=== PATIENT | male | born 1985 | race Caucasian/White ===

== ENCOUNTER 2024-07-01 10:45 | Emergency (ER) | payer MEDICARE, OTHER ==
[2024-07-01 11:51] VITALS: TEMP 97.7
--- NOTE | 2024-07-01 12:13 | ED ---
Recheck HPI - General Chief Complaint: Needlestick/Exposure Stated Complaint: poss hep B contraction Time Seen by Provider: 07/01/24 12:11 Source: patient, RN notes reviewed Mode of arrival: ambulatory Limitations: no limitations - History of Present Illness Initial Comments: 39-year-old male presented the ER for evaluation of hepatitis B exposure. Pat ient states he had sexual intercourse with a female yesterday who stated she was positive for hepatitis B. Patient states he googled possible preventions and stated he was told to come to the ER for an injection. Patient also reports he would like to be prophylactically treated for all STDs. He denies any penile pain, rashes or discharge. No scrotal swelling or tenderness. No abdominal pain, nausea, vomiting, constipation/diarrhea or fevers. Patient does admit to a history of hepatitis C. No other complaints. Patient unsure of childhood vaccination status. - Related Data Previous Rx's Medication Instructions Recorded Doxycycline [Vibramycin] 100 mg PO BID #14 capsule 07/01/24 metroNIDAZOLE [Flagyl] 2 g PO ONCE 1 Days #4 tab 07/01/24 Allergies Allergy/AdvReac Type Severity Reaction Status Date / Time haloperidol [From Haldol] Allergy Unknown Verified 07/01/24 11:46 meperidine [From Demerol] Allergy Unknown Verified 07/01/24 11:46 quetiapine [From Seroquel] Allergy Unknown Verified 07/01/24 11:46 Review of Systems ROS Statement: Those systems with pertinent positive or pertinent negative responses have been documented in the HPI. ROS Other: All systems not noted in ROS Statement are negative. Past Medical History Additional Past Medical History / Comment(s): Hep C with treatment Past Surgical History: No Surgical Hx Reported Past Psychological History: Bipolar Smoking Status: Current every day smoker Past Alcohol Use History: None Reported Past Drug Use History: None Reported General Exam Limitations: no limitations General appearance: alert, in no apparent distress Respiratory exam: Present: normal lung sounds bilaterally. Absent: respiratory distress, wheezes, rales, rhonchi, stridor Cardiovascular Exam: Present: regular rate, normal rhythm, normal heart sounds. Absent: systolic murmur, diastolic murmur, rubs, gallop, clicks GI/Abdominal exam: Present: soft, normal bowel sounds. Absent: distended, tenderness, guarding, rebound, rigid Neurological exam: Present: alert, oriented X3, CN II-XII intact Skin exam: Present: warm, dry, intact, normal color. Absent: rash Course Vital Signs 07/01/24 07/01/24 11:46 13:15 Temperature 97.7 F Pulse Rate 60 62 Respiratory 18 16 Rate Blood Pressure 115/65 126/86 O2 Sat by Pulse 98 99 Oximetry - Reevaluation(s) Reevaluation #1: 07/01/24 12:49 Patient refused syphilis testing and prophylactic treatment. Patient also refused herpes prophylaxis Medical Decision Making - Medical Decision Making Was pt. sent in by a medical professional or institution (, PA, SUPERVISORY LIFEGUARD, urgent care, hospital, or correction...) When possible be specific @ -No Did you speak to anyone other than the patient for history (EMS, parent, family, police, friend...)? What history was obtained from this source @ -No Did you review nursing and triage notes (agree or disagree)? Why? @ -I reviewed and agree with nursing and triage notes Were old charts reviewed (outside hosp., previous admission, EMS record, old EKG, old radiological studies, urgent care reports/EKG's, correction records)? Report findings @ -No old charts were reviewed Differential Diagnosis (chest pain, altered mental status, abdominal pain women, abdominal pain men, vaginal bleeding, weakness, fever, dyspnea, syncope, headache, dizziness, GI bleed, back pain, seizure, CVA, palpatations, mental health, musculoskeletal)? @ -Gonorrhea, chlamydia, hepatitis, trichomonas, syphilis, herpes... This list is not meant to be all-inclusive] EKG interpreted by me (3pts min.). @ -None done X-rays interpreted by me (1pt min.). @ -None done CT interpreted by me (1pt min.). @ -None done U/S interpreted by me (1pt. min.). @ -None done What testing was considered but not performed or refused? (CT, X-rays, U/S, labs)? Why? @ -Patient refused syphilis testing. What meds were considered but not given or refused? Why? @ -Patient refused syphilis and herpes prophylaxis. Hepatitis B vaccinations ordered but I was notified by pharmacy that we do not carry these and patient will have to follow-up at health department for vaccination. Did you discuss the management of the patient with other professionals (professionals i.e. , PA, SUPERVISORY LIFEGUARD, lab, RT, psych nurse, family welfare social work professor, caster helper, teacher, patient transport officer, machine adjuster leader case trim)? Give summary @ -No Was smoking cessation discussed for >3mins.? @ -I discussed smoking cessation for greater than 3 minutes. The risk of smoking were discussed with the patient including but not limited to risks of cancer, stroke, coronary artery disease and COPD. Also discussed with patient were multiple methods of quitting smoking. Lastly we discussed the financial cost of smoking. Was critical care preformed (if so, how long)? @ -No Were there social determinants of health that impacted care today? How? (Homelessness, low income, unemployed, alcoholism, drug addiction, transportation, low edu. Level, literacy, decrease access to med. care, senior living, rehab)? @ -Patient does not currently have a PCP. Was there de-escalation of care discussed even if they declined (Discuss DNR or withdrawal of care, Hospice)? DNR status @ -No What co-morbidities impacted this encounter? (DM, HTN, Smoking, COPD, CAD, Cancer, CVA, ARF, Chemo, Hep., AIDS, mental health diagnosis, sleep apnea, morbid obesity)? @ -History of hepatitis C Was patient admitted / discharged? Hospital course, mention meds given and route, prescriptions, significant lab abnormalities, going to OR and other pertinent info. @ -Discharge. 39-year-old male presented to ER for evaluation of STD exposure. Exam benign. Urinalysis unremarkable. Urine gonorrhea, chlamydia and trichomonas pending. Patient elected to be prophylactically treated and received IM Rocephin. Patient prescribed doxycycline and Flagyl. Patient refused syphilis and herpes prophylaxis. Hepatitis B vaccination ordered but I was notified by pharmacy that we do not carry this and patient will have to follow-up with health department for vaccination. I discussed this with patient who is agreeable. Contact information for health department was given upon discharge. Patient is stable for discharge and outpatient follow-up with PCP. As patient does not have a current PCP I recommended he follow-up with residency clinic within the next 24 to 48 hours for recheck. Patient is agreeable. Strict return parameters discussed. Patient discharged in stable condition with follow-up to PCP. Patient verbally expressed understanding and agreement with care plan. Case discussed with ED attending, Dr. Parsons. Undiagnosed new problem with uncertain prognosis? @ -No Drug Therapy requiring intensive monitoring for toxicity (Heparin, Nitro, Insulin, Cardizem)? @ -No Were any procedures done? @ -No Diagnosis/symptom? @ -STD exposure Acute, or Chronic, or Acute on Chronic? @ -Acute Uncomplicated (without systemic symptoms) or Complicated (systemic symptoms)? @ -Uncomplicated Side effects of treatment? @ -No Exacerbation, Progression, or Severe Exacerbation? @ -No Poses a threat to life or bodily function? How? (Chest pain, [place], [place], pneumonia, PE, COPD, DKA, ARF, appy, cholecystitis, CVA, Diverticulitis, Homicidal, Suicidal, threat to staff... and all critical care pts) @ -Yes, STDs can lead to infertility. - Lab Data Lab Results 07/01/24 Range/Units 12:17 Urine Color Yellow Urine Appearance Clear (Clear) Urine pH 6.5 (5.0-8.0) Ur Specific [place] 1.029 (1.001-1.035) Urine Protein Trace H (Negative) Urine Glucose (UA) Negative (Negative) Urine Ketones Negative (Negative) Urine Blood Negative (Negative) Urine Nitrite Negative (Negative) Urine Bilirubin Negative (Negative) Urine Urobilinogen <2.0 (<2.0) mg/dL Ur Leukocyte Esterase Negative (Negative) Disposition Clinical Impression: Exposure to STD Disposition: HOME SELF-CARE Condition: Stable Instructions (If sedation given, give patient instructions): Hepatitis B Vacci ne (By injection), Sexually Transmitted Diseases (ED), Hepatitis B (ED) Additional Instructions: Follow-up closely next 24 to 48 hours with residency clinic for reevaluation. Take antibiotics as prescribed. All positive results will be called back to you. Return to the ER for any new or worsening concerns. Go to health department for hepatitis B vaccine. [facility] - [address] [place] [id number] Prescriptions: metroNIDAZOLE [Flagyl] 2 g PO ONCE 1 Days #4 tab Doxycycline [Vibramycin] 100 mg PO BID #14 capsule Is patient prescribed a controlled substance at d/c from ED?: No Referrals: None,Stated [Primary Care Provider] - 1-2 days Forms: Area PCPs Time of Disposition: 12:46
[2024-07-01 12:27] LABS: Appearance,Urine Clear (Clear); Bilirubin,Urine Negative (Negative); Blood,Urine Negative (Negative); Color,Urine Yellow; Glucose,Urine (UA) Negative (Negative); Ketones,Urine Negative (Negative); Leukocyte Esterase,Urine Negative (Negative); Nitrite,Urine Negative (Negative); PH, Urine 6.5 (5.0-8.0); Protein,Urine Trace (Negative); Specific Gravity,Urine 1.029 (1.001-1.035); Urobilinogen,Urine <2.0 mg/dL (<2.0)
[2024-07-01] MEDS ORDERED: HEPATITIS B VIRUS VAC-ADULT/PF 20 MCG/ML SYRINGE IM ONE (12:40)
[2024-07-01] MEDS: DOXYCYCLINE 100 MG CAP PO STA (13:01)
[2024-07-01] MEDS: cefTRIAXone 250 MG VIAL IM STA (13:02)
[2024-07-01 13:17] VITALS: BP 126/86; PULSE 62; RESP 16
[2024-07-03 12:46] LABS: C. trachomatis,PCR Negative (Negative); N. gonorrhoeae,PCR Negative (Negative)
== END 2024-07-01 13:16 | disposition home or self-care (01) ==
LOC: EC 10:45
DX: Z20.2 Contact with and (suspected) exposure to infections with a predominantly sexual mode of transmission (principal); Z86.19 Personal history of other infectious and parasitic diseases; F17.200 Nicotine dependence, unspecified, uncomplicated; Z88.8 Allergy status to other drugs, medicaments and biological substances; Z88.5 Allergy status to narcotic agent
CPT/HCPCS: 81003; 87491; 87591; 87661; 99283; 96372; 99406; J0696

== ENCOUNTER 2024-10-26 01:18 | Inpatient (IN) | payer MEDICARE, OTHER ==
[2024-10-26] MEDS: SODIUM CHLORIDE 0.9% 500 ML 500 ML IV STA (02:30)
[2024-10-26 02:34] LABS: Basophils # (A) 0.05 10*3/uL (0.00-0.10); Basophils % (A) 0.4 %; Eosinophils % (A) 1.5 %; HGB 15.4 g/dL (13.0-17.0); Lymphocytes % (A) 22.6 %; MCH 31.4 pg (27.0-32.0); MCHC 36.7 g/dL (32.0-37.0); MCV 85.5 fL (80.0-97.0); Mean Platelet Volume 9.2 fL (9.5-12.2); Monocytes # (A) 1.02 10*3/uL (0.20-1.00); Monocytes % (A) 7.7 %; Neutrophils # (A) 8.98 10*3/uL (1.80-7.70); Neutrophils % (A) 67.5 %; Platelet Count 239 10*3/uL (140-440); RBC 4.91 10*6/uL (4.40-5.60); RDW 12.1 % (11.5-14.5); WBC 13.29 10*3/uL (4.50-10.00)
[2024-10-26 02:46] LABS: ALT 16 U/L (4-49); African American GFR (CKD) >90 (>60 ml/min/1.73 sqM); Albumin 4.2 g/dL (3.5-5.0); Anion Gap 11 mmol/L; Blood Urea Nitrogen 16 mg/dL (9-20); Calcium 9.1 mg/dL (8.4-10.2); Carbon Dioxide 22 mmol/L (22-30); Chloride 104 mmol/L (98-107); Glucose 105 mg/dL (74-99); Non-African American GFR(CKD) >90 (>60 ml/min/1.73 sqM); Sodium 137 mmol/L (137-145); Total Bilirubin 0.7 mg/dL (0.2-1.3); Total Protein 7.4 g/dL (6.3-8.2)
[2024-10-26 02:51] LABS: AST 24 U/L (17-59); Alkaline Phosphatase 61 U/L (38-126); Potassium 3.9 mmol/L (3.5-5.1)
--- NOTE | 2024-10-26 03:43 | XR ---
EXAM: XR Chest, 2 Views CLINICAL HISTORY: ITS.REASON XR Reason: right chest pain TECHNIQUE: Frontal and lateral views of the chest. COMPARISON: None FINDINGS: Hardware: None. Lungs/pleura: Opacity in the posterior right lower lobe. Small right pleural effusion. Heart/mediastinum: Normal. No cardiomegaly. Soft tissues: Unremarkable. Bones: No acute fracture. Upper abdomen: Normal. IMPRESSION: Opacity in the posterior right lower lobe may represent atelectasis versus infectious/inflammatory process. Small right pleural effusion.
--- NOTE | 2024-10-26 03:52 | CT ---
EXAM: CT Angiography Chest With Intravenous Contrast CLINICAL HISTORY: ITS.REASON CT Reason: Right pleuritic pain TECHNIQUE: Axial computed tomographic angiography images of the chest with intravenous contrast. CTDI is 12.8 mGy and DLP is 480.4 mGy-cm. This CT exam was performed using one or more of the following dose reduction techniques: automated exposure control, adjustment of the mA and/or kV according to patient size, and/or use of iterative reconstruction technique. MIP reconstructed images were created and reviewed. COMPARISON: None FINDINGS: Pulmonary arteries: Pulmonary emboli in the segmental and subsegmental pulmonary arteries to the right upper lobe. Pulmonary emboli in the subsegmental pulmonary arteries to the right middle lobe and right lower lobe. Subsegmental pulmonary emboli in the pulmonary arteries to the left lower lobe and lingula. Aorta: No acute findings. No aortic aneurysm or dissection. Lungs: Consolidations and groundglass opacities in the posterior right lower lobe may represent pulmonary infarct versus pneumonia. Small focal density at the posterior left lung base may represent atelectasis versus developing infarct or infectious/inflammatory process. Pleural space: Small right pleural effusion. No pneumothorax. Heart: RV/LV ratio is greater than 1. No cardiomegaly. No significant pericardial effusion. Bones/joints: No acute fracture. No dislocation. Soft tissues: Unremarkable. Lymph nodes: Unremarkable. No enlarged lymph nodes. Gallbladder and bile ducts: Contracted gallbladder. IMPRESSION: 1. Pulmonary emboli in the segmental and subsegmental pulmonary arteries to the right upper lobe. Pulmonary emboli in the subsegmental pulmonary arteries to the right middle lobe and right lower lobe. Subsegmental pulmonary emboli in the pulmonary arteries to the left lower lobe and lingula. 2. No aortic aneurysm or dissection. 3. Consolidations and groundglass opacities in the posterior right lower lobe may represent pulmonary infarct versus pneumonia. Small focal density at the posterior left lung base may represent atelectasis versus developing infarct or infectious/inflammatory process. 4. Small right pleural effusion. 5. RV/LV ratio is greater than 1. <MYCVCSECTION> Communications: 10/26/24 03:53 Call Doctor Regarding Pulmonary Embolism, called Dr. Hunter on 10/26 03:52 (-04:00)
[2024-10-26] MEDS ORDERED: HEPARIN SODIUM 1,000 UN/ML (10ML VL) IV PRN (03:56)
[2024-10-26] MEDS ORDERED: MAG HYDROX/AL HYDROX/SIMETH 30 ML CUP PO PRN (04:05)
[2024-10-26] MEDS ORDERED: NALOXONE 0.4 MG/ML 1 ML VIAL IV PRN ×2 (04:05→06:57)
[2024-10-26] MEDS: KETOROLAC 15 MG/ML 1 ML VIAL IVP SCH (04:17)
[2024-10-26] MEDS: HEPARIN SODIUM 1,000 UN/ML (10ML VL) IV ONE (04:17)
[2024-10-26] MEDS: HEPARIN SOD,PORK IN 0.45% NACL 25,000 UNIT in 0.45% NACL 1 250ML.BAG IV SCH (04:19)
[2024-10-26] MEDS: SODIUM CHLORIDE 0.9% 1,000 ML IV SCH (04:21)
--- NOTE | 2024-10-26 04:45 | ED ---
Chest Pain HPI - General Chief Complaint: Headache Stated Complaint: Right side pain Time Seen by Provider: 10/26/24 01:44 Source: patient Mode of arrival: ambulatory Limitations: no limitations - History of Present Illness Initial Comments: This patient is a 39-year-old man who presents with a number of complaints that started yesterday. The patient is having some mild diffuse generalized headache. He describes it as mild to moderate intensity. He states that he has had worse headaches in the past. He denies neck pain. No neurologic symptoms. The patient also complaining of right sided chest pain that is worse when he takes a deep breath or with some movements. He has not noted fever or chills. No productive cough. No real dyspnea. No hemoptysis. The patient denies leg pain or swelling. MD Complaint: chest pain Onset/Timin -: days(s) Onset: during rest Pain Location: right chest Pain Radiation: none Severity: moderate Quality: sharp Consistency: intermittent Improves With: nothing Worsens With: nothing Treatments Prior to Arrival: none - Related Data Home Medications Medication Instructions Recorded Confirmed OLANZapine 20 mg PO HS 10/26/24 10/26/24 buPROPion HCL [buPROPion HCL XL] 150 mg PO DAILY 10/26/24 10/26/24 cloNIDine HCL [Catapres] 0.1 mg PO BID 10/26/24 10/26/24 Previous Rx's Medication Instructions Recorded Apixaban [Eliquis Starter Pack 5 - 10 mg PO DIRECTED 30 Days 10/27/24 (for VTE)] #1 each Allergies Allergy/AdvReac Type Severity Reaction Status Date / Time haloperidol [From Haldol] Allergy "feels Verified 10/26/24 10:32 like swallowing tongue" meperidine [From Demerol] Allergy Rash/Hives Verified 10/26/24 10:32 quetiapine [From Seroquel] AdvReac Restless Verified 10/26/24 10:32 Legs Review of Systems ROS Statement: Those systems with pertinent positive or pertinent negative responses have been documented in the HPI. ROS Other: All systems not noted in ROS Statement are negative. Constitutional: Denies: fever, chills Respiratory: Denies: cough, dyspnea, wheezes, hemoptysis Cardiovascular: Reports: chest pain. Denies: palpitations, orthopnea, edema, syncope Gastrointestinal: Denies: abdominal pain, nausea, vomiting Genitourinary: Denies: dysuria, hematuria Musculoskeletal: Denies: back pain Skin: Denies: rash Neurological: Reports: headache. Denies: weakness, numbness EKG Findings - EKG Results: EKG: interpreted by LINDSEY, sinus rhythm (Rate 87 bpm), normal axis, normal ST/T - Blocks, [place], Hypertrophy, ST Abn: AV and intraventricular conduction: right bundle branch block (fixed/intermittent, complete/incomplete) (Incomplete) Past Medical History Additional Past Medical History / Comment(s): Hep C with treatment History of Any Multi-Drug Resistant Organisms: None Reported Past Surgical History: No Surgical Hx Reported Past Psychological History: Bipolar Smoking Status: Current every day smoker Past Alcohol Use History: None Reported Past Drug Use History: None Reported General Exam Limitations: no limitations General appearance: alert, in no apparent distress Head exam: Present: atraumatic, normocephalic Eye exam: Present: normal appearance. Absent: scleral icterus, conjunctival injection Neck exam: Present: normal inspection Respiratory exam: Present: normal lung sounds bilaterally. Absent: respiratory distress, wheezes, rales, rhonchi, stridor, chest wall tenderness, accessory muscle use Cardiovascular Exam: Present: regular rate, normal rhythm, normal heart sounds. Absent: systolic murmur, diastolic murmur, rubs, gallop GI/Abdominal exam: Present: soft. Absent: distended, tenderness, guarding, rebound, rigid, mass Extremities exam: Present: normal inspection, normal capillary refill. Absent: pedal edema, calf tenderness Back exam: Present: normal inspection Neurological exam: Present: alert Skin exam: Present: warm, dry, intact, normal color. Absent: rash Course Vital Signs 10/26/24 10/26/24 10/26/24 01:24 04:00 04:45 Temperature 98.1 F 98.1 F Pulse Rate 112 H 89 Pulse Rate [ 76 Pulse Oximetery ] Respiratory 18 18 18 Rate Blood Pressure 123/82 123/80 Blood Pressure 112/76 [Left Arm Supine] O2 Sat by Pulse 95 98 96 Oximetry Chest Pain MDM - MDM The patient had chest x-ray that I interpreted as negative for acute infiltrate, pneumothorax, congestive heart failure The patient had CT scan of the chest with contrast that I interpreted as showing bilateral pulmonary embolism. There may be small developing right pulmonary infarction Was pt. sent in by a medical professional or institution (, PA, RECEPTIONIST CLERK, urgent care, hospital, or [place] health care facility...) When possible be specific @ -[No] Did you speak to anyone other than the patient for history (EMS, parent, family, police, friend...)? What history was obtained from this source @ -[No] Did you review nursing and triage notes (agree or disagree)? Why? @ -[I reviewed and agree with nursing and triage notes] Were old charts reviewed (outside hosp., previous admission, EMS record, old EKG, old radiological studies, urgent care reports/EKG's, [place] [facility] [place] records)? Report findings @ -[No old charts were reviewed] Differential Diagnosis (chest pain, altered mental status, abdominal pain women, abdominal pain men, vaginal bleeding, weakness, fever, dyspnea, syncope, headache, dizziness, GI bleed, back pain, seizure, CVA, palpatations, mental health, musculoskeletal)? @ -[Differential Chest Pain: Stable Angina, Unstable Angina, STEMI, NSTEMI Aortic Dissection, Pneumothorax, Musculoskeletal, Esophageal Spasm GERD, Cholecystitis, Pancreatitis, Zoster, this is not meant to be an all-inclusive list. Differential Headache: Migraine, tension, cluster, carbon monoxide, central venous thrombosis, pension karma temporal arteritis, acute closure glaucoma, intercranial hemorrhage, mastoiditis, sinusitis, head injury, this is not meant to be an all-inclusive list. EKG interpreted by me (3pts min.). @ -[I interpreted as above] X-rays interpreted by me (1pt min.). @ -[I interpreted as above] CT interpreted by me (1pt min.). @ -[I interpreted as above U/S interpreted by me (1pt. min.). @ -[None done] What testing was considered but not performed or refused? (CT, X-rays, U/S, labs)? Why? @ -[None] What meds were considered but not given or refused? Why? @ -[None] Did you discuss the management of the patient with other professionals (professionals i.e. , PA, RECEPTIONIST CLERK, lab, RT, psych nurse, social sciences department chair, pinion sorter, teacher, tax compliance officer, case mgr)? Give summary @ -[Case discussed with admitting physician and treatment recommendations incorporated Was smoking cessation discussed for >3mins.? @ -[No] Was critical care preformed (if so, how long)? @ -[Yes, 35 minutes Were there social determinants of health that impacted care today? How? (Homelessness, low income, unemployed, alcoholism, drug addiction, transportation, low edu. Level, literacy, decrease access to med. care, half-way, rehab)? @ -[No] Was there de-escalation of care discussed even if they declined (Discuss DNR or withdrawal of care, Hospice)? DNR status @ -[No] What co-morbidities impacted this encounter? (DM, HTN, Smoking, COPD, CAD, Cancer, CVA, ARF, Chemo, Hep., AIDS, mental health diagnosis, sleep apnea, morbid obesity)? @ -[None] Was patient admitted / discharged? Hospital course, mention meds given and route, prescriptions, significant lab abnormalities, going to OR and other pertinent info. @ -[Patient is a 39-year-old man here with pleuritic right-sided chest pain and found to have pulmonary embolism, with suspected right pulmonary infarct. The patient is admitted with pulmonology consultation, started on heparin. Undiagnosed new problem with uncertain prognosis? @ -[No] Drug Therapy requiring intensive monitoring for toxicity (Heparin, Nitro, Insulin, Cardizem)? @ -[IV heparin Were any procedures done? @ -[No] Diagnosis/symptom? @ -[Acute pulmonary embolism Acute headache Probable small pulmonary infarct Acute, or Chronic, or Acute on Chronic? @ -[Acute Uncomplicated (without systemic symptoms) or Complicated (systemic symptoms)? @ -[default] Side effects of treatment? @ -[No] Exacerbation, Progression, or Severe Exacerbation? @ -[No] Poses a threat to life or bodily function? How? (Chest pain, [place], [place], pneumonia, PE, COPD, DKA, ARF, appy, cholecystitis, CVA, Diverticulitis, Homicidal, Suicidal, threat to staff... and all critical care pts) @ -[Yes, requires further pulmonology evaluation and treatment All treatments are based on ideal body weight as in ED triage Disposition Clinical Impression: Pulmonary emboli, Headache Disposition: ADMITTED IP TO THIS HOSP Condition: Fair Is patient prescribed a controlled substance at d/c from ED?: No
--- NOTE | 2024-10-26 06:57 | P.HPIM ---
History of Present Illness H&P Date: 10/26/24 Chief Complaint: Chest pain The patient is a 39-year-old male with history of bipolar disorder who states that he was doing well until the day of admission. The patient states he awoke from sleep with right-sided pain. The patient denied fevers or chills. The patient presented to the emergency room he was noted to be tachycardic with a heart rate of 112. The patient had a temperature of 98.1, respiratory rate of 18, blood pressure 123/82. The patient was noted to have a leukocytosis of 13.29, D-dimer 3.02. The patient had a CT of the chest that showed pulmonary e mboli in the segmental and subsegmental pulmonary arteries to the right upper lobe. There were consolidation and groundglass opacities in the posterior right lower lobe. The patient was started on heparin drip and hospitalized for further workup and management. Review of Systems Cardiovascular: Reports chest pain Past Medical History Additional Past Medical History / Comment(s): Hep C with treatment History of Any Multi-Drug Resistant Organisms: None Reported Past Surgical History: No Surgical Hx Reported Past Psychological History: Bipolar Smoking Status: Current every day smoker Past Alcohol Use History: None Reported Past Drug Use History: None Reported Medications and Allergies Home Medications Medication Instructions Recorded Confirmed Type OLANZapine 20 mg PO HS 10/26/24 10/26/24 History buPROPion HCL [buPROPion HCL XL] 150 mg PO DAILY 10/26/24 10/26/24 History cloNIDine HCL [Catapres] 0.1 mg PO BID 10/26/24 10/26/24 History Allergies Allergy/AdvReac Type Severity Reaction Status Date / Time haloperidol [From Haldol] Allergy Unknown Verified 10/26/24 01:27 meperidine [From Demerol] Allergy Unknown Verified 10/26/24 01:27 quetiapine [From Seroquel] Allergy Unknown Verified 10/26/24 01:27 Physical Exam Vitals: Vital Signs Temp Pulse Pulse Resp BP BP Pulse Ox 10/26/24 04:45 76 18 112/76 96 10/26/24 04:00 98.1 F 89 18 123/80 98 10/26/24 01:24 98.1 F 112 H 18 123/82 95 Intake and Output 10/25/24 10/25/24 10/26/24 14:59 22:59 06:59 Intake Total 360 Balance 360 Intake: Oral 360 Other: Weight 87.4 kg - Constitutional General appearance: average body habitus - EENT Eyes: PERRLA - Respiratory Respiratory: bilateral: CTA - Cardiovascular Rhythm: regular - Gastrointestinal General gastrointestinal: normal bowel sounds - Musculoskeletal Musculoskeletal: strength equal bilaterally - Psychiatric Psychiatric: A&O x's 3, appropriate affect Results CBC & Chem 7: 10/26/24 02:27 10/26/24 02:27 Labs: Abnormal Lab Results - Last 24 Hours (Table) 10/26/24 10/26/24 10/26/24 Range/Units 02:27 02:27 02:27 WBC 13.29 H (4.50-10.00) 10*3/uL MPV 9.2 L (9.5-12.2) fL Neutrophils # 8.98 H (1.80-7.70) 10*3/uL Monocytes # 1.02 H (0.20-1.00) 10*3/uL D-Dimer 3.02 H (<0.60) mg/L FEU Glucose 105 H (74-99) mg/dL CT scan - chest: report reviewed Thrombosis Risk Factor Assmnt - Choose All That Apply Each Factor Represents 1 point: Medical pt on bed rest Other Risk Factors: No Other congenital or acquired thrombophilia - If yes, enter type in comment: No Thrombosis Risk Factor Assessment Total Risk Factor Score: 1 Thrombosis Risk Factor Assessment Level: Low Risk Assessment and Plan (1) Chest pain Narrative/Plan: Chest pain secondary to pulmonary emboli, infarct versus pulmonary emboli. Will start IV Rocephin. Current Visit: Yes Status: Acute Code(s): R07.9 - CHEST PAIN, UNSPECIFIED SNOMED Code(s): 41630707 (2) Pulmonary emboli Narrative/Plan: Heparin drip, oxygen support as needed, hematology consult. Current Visit: Yes Status: Acute Code(s): I26.99 - OTHER PULMONARY EMBOLISM WITHOUT ACUTE COR PULMONALE SNOMED Code(s): 82072021 (3) Bipolar disorder Narrative/Plan: Continue outpatient regimen. Current Visit: Yes Status: Acute Code(s): F31.9 - BIPOLAR DISORDER, UNSPECIFIED SNOMED Code(s): 54556010 Plan: Continue heparin drip, oxygen supplementation as needed, hematology consult.
[2024-10-26] MEDS: FAMOTIDINE 20 MG TAB PO SCH (09:59)
[2024-10-26] MEDS: cloNIDine HCL 0.1 MG TAB PO SCH (09:59)
--- NOTE | 2024-10-26 10:00 | P.CNPUL ---
History of Present Illness Consult date: 10/26/24 Requesting physician: Forrest Mueller Reason for consult: dyspnea, chest pain, pulmonary embolism, abnormal CXR/CT Chief complaint: Chest pain. History of present illness: Pulmonary consult dated October 26, 2024. 39-year-old male with no past medical history other than bipolar disorder, presents to the emergency department October 26, complaining of right-sided chest discomfort, and headache. The symptoms began 1 day prior to admission. He really denies any shortness of breath. He also denies any cough. He denies any fever or chills. He has never had a pain like this before. He was evaluated in the emergency room department, and found to have bilateral pulmonary emboli, more right-sided than left-sided, and potentially some pulmonary infarction, right lower lobe. The patient is currently on room air. He is on IV heparin. Antibiotics were discontinued. The patient is resting comfortably in bed without complaint. Laboratory data includes a white count of 13.3, hemoglobin 15.4, hematocrit 42, and platelet count of 239,000. D-dimer was 3.02. Sodium 137, potassium 3.9, chlorides 104, CO2 22, anion gap 11, BUN 16, creatinine 0.92. Glucose is 105. Troponin was less than 0.012 and N-terminal proBNP was normal. Chest x-ray and CT scan were both reviewed. The patient may have an area of pulmonary infarction, right lower lobe. Review of Systems REVIEW OF SYSTEMS: CONSTITUTIONAL: [Negative.] NEUROLOGIC: Headache. HEENT: [ Negative.] CARDIAC: [Negative.] PULMONARY: Right posterior chest pain. GI: [Negative.] : [Negative.] RHEUMATOLOGIC: [ Negative.] IMMUNOLOGIC: [ Negative.] ENDOCRINE: [Negative. ] DERMATOLOGIC: [Negative.] Past Medical History Additional Past Medical History / Comment(s): Hep C with treatment History of Any Multi-Drug Resistant Organisms: None Reported Past Surgical History: No Surgical Hx Reported Past Psychological History: Bipolar Smoking Status: Current every day smoker Past Alcohol Use History: None Reported Past Drug Use History: None Reported Medications and Allergies Home Medications Medication Instructions Recorded Confirmed Type OLANZapine 20 mg PO HS 10/26/24 10/26/24 History buPROPion HCL [buPROPion HCL XL] 150 mg PO DAILY 10/26/24 10/26/24 History cloNIDine HCL [Catapres] 0.1 mg PO BID 10/26/24 10/26/24 History Allergies Allergy/AdvReac Type Severity Reaction Status Date / Time haloperidol [From Haldol] Allergy Unknown Verified 10/26/24 01:27 meperidine [From Demerol] Allergy Unknown Verified 10/26/24 01:27 quetiapine [From Seroquel] Allergy Unknown Verified 10/26/24 01:27 Physical Exam Osteopathic Statement: *. No significant issues noted on an osteopathic structural exam other than those noted in the History and Physical/Consult. Vitals: Vital Signs Temp Pulse Pulse Resp BP BP Pulse Ox 10/26/24 04:45 76 18 112/76 96 10/26/24 04:00 98.1 F 89 18 123/80 98 10/26/24 01:24 98.1 F 112 H 18 123/82 95 Intake and Output 10/25/24 10/26/24 10/26/24 22:59 06:59 14:59 Intake Total 360 180 Balance 360 180 Intake: Oral 360 180 Other: Weight 87.4 kg No acute distress, oriented 3. The patient is currently on room air. HEENT examination is grossly unremarkable. Mucous membranes are moist. No oral lesions. Neck supple. Full range of motion. No adenopathy thyromegaly or neck vein distention. Cardiovascular examination reveals regular rhythm rate. S1-S2 normal. No S3 or S4. No discernible murmur noted. Lungs reveal clear breath sounds. Breath sounds are equal bilaterally. No adventitious lung sounds including wheezes rhonchi or crackles. Abdomen soft bowel sounds are heard. No masses or tenderness. Extremities are intact. No cyanosis clubbing or edema. Skin is without rash or lesion. Neurologic examination is brief but nonfocal. Results - Laboratory Findings CBC and BMP: 10/26/24 02:27 10/26/24 02:27 PT/INR, D-dimer D-Dimer 3.02 mg/L FEU (<0.60) H 10/26/24 02:27 Abnormal lab findings: Abnormal Labs 10/26/24 10/26/24 10/26/24 02:27 02:27 02:27 WBC 13.29 H MPV 9.2 L Neutrophils # 8.98 H Monocytes # 1.02 H D-Dimer 3.02 H Glucose 105 H - Diagnostic Findings Chest x-ray: image reviewed CT scan - chest: image reviewed Assessment and Plan Assessment: Acute bilateral pulmonary embolism, with right lower lobe pulmonary infarction. History of hepatitis C. History of bipolar disorder. History of ongoing tobacco use. Plan: Plan dated October 26, 2024. The patient is seen today in room 358. He is resting comfortably in bed. He is on room air. He presented to the emergency department, with complaints of headache, and pain in his right chest area. His D-dimer was elevated. His chest x-ray suggested a posterior infiltrate. CTA, was positive for bilateral pulmonary embolism, right greater than left. In addition, there appears to be an area of infarction, in the right lower lobe. This likely explains his chest pain. He is currently on IV heparin. He is resting comfortably. He can be transition to a factor Xa inhibitor. This was a unprovoked PE, and the patient should be treated for at least 6 months. Labs, x-rays, and medications are reviewed. Dictation was produced using [employer] software. Please excuse any grammatical, word or spelling errors. Time with Patient: Greater than 30
--- NOTE | 2024-10-26 11:11 | US ---
EXAMINATION TYPE: US venous doppler duplex LE BI DATE OF EXAM: 10/26/2024 10:55 AM COMPARISON: NONE CLINICAL INDICATION: Male, 39 years old with history of PE, possible DVT; PE, Pain TECHNIQUE: The lower extremity deep venous system is examined utilizing real time linear array sonog vincent with graded compression, color doppler sonography, and spectral doppler. SIDE PERFORMED: Bilateral FINDINGS: VESSELS IMAGED: Common Femoral Vein Deep Femoral Vein Greater Saphenous Vein * Femoral Vein Popliteal Vein Small Saphenous Vein * Proximal Calf Veins (* superficial vessels) Right Leg: Negative for DVT, Color Doppler imaging shows patency of the vessels. Spectral waveforms are within normal limits. Left Leg: Negative for DVT, Color Doppler imaging shows patency of the vessels. Spectral waveforms a re within normal limits. IMPRESSION: No ultrasound evidence for deep venous thrombosis. [facility], , 10/26/2024 11:08 AM
[2024-10-26] MEDS: buPROPion XL 150 MG TAB.ER.24H PO SCH (11:46)
--- NOTE | 2024-10-26 12:21 | P.PN ---
Progress Note - Text Progress Note Date: 10/26/24 Patient seen and examined, recommend quitting smoking as it is only obvious cause for this unprovoked clot. Discontinue heparin, start apixaban 10 mg twice daily for 7 days then 5 mg twice daily. Was seen by pulmonary this morning. Doppler ultrasound of both legs was negative for PE. Anticipate discharge in a.m.
[2024-10-26] MEDS: Apixaban Initiation Dose--VTE 5 MG TAB PO SCH (14:07)
[2024-10-26] MEDS: OLANZapine 10 MG TAB PO SCH (20:12)
[2024-10-27 07:55] LABS: Basophils # (A) 0.03 10*3/uL (0.00-0.10); Basophils % (A) 0.4 %; Eosinophils # (A) 0.22 10*3/uL (0.04-0.35); Eosinophils % (A) 3.2 %; HCT 40.3 % (39.6-50.0); HGB 14.1 g/dL (13.0-17.0); Lymphocytes # (A) 2.74 10*3/uL (0.90-5.00); Lymphocytes % (A) 39.9 %; MCH 30.5 pg (27.0-32.0); Monocytes # (A) 0.56 10*3/uL (0.20-1.00); Monocytes % (A) 8.2 %; Neutrophils % (A) 48.2 %; Platelet Count 195 10*3/uL (140-440); RBC 4.63 10*6/uL (4.40-5.60); RDW 12.4 % (11.5-14.5); WBC 6.86 10*3/uL (4.50-10.00)
--- NOTE | 2024-10-27 08:45 | P.PN ---
Subjective Progress Note Date: 10/27/24 Principal diagnosis: Pulmonary embolism. Pulmonary consult dated October 26, 2024. 39-year-old male with no past medical history other than bipolar disorder, presents to the emergency department October 26, complaining of right-sided chest discomfort, and headache. The symptoms began 1 day prior to admission. He really denies any shortness of breath. He also denies any cough. He denies any fever or chills. He has never had a pain like this before. He was evaluated in the emergency room department, and found to have bilateral pulmonary emboli, more right-sided than left-sided, and potentially some pulmonary infarction, right lower lobe. The patient is currently on room air. He is on IV heparin. Antibiotics were discontinued. The patient is resting comfortably in bed without complaint. Laboratory data includes a white count of 13.3, hemoglobin 15.4, hematocrit 42, and platelet count of 239,000. D-dimer was 3.02. Sodium 137, potassium 3.9, chlorides 104, CO2 22, anion gap 11, BUN 16, creatinine 0.92. Glucose is 105. Troponin was less than 0.012 and N-terminal proBNP was normal. Chest x-ray and CT scan were both reviewed. The patient may have an area of pulmonary infarction, right lower lobe. Progress note dated October 27, 2024. The patient is again seen today in room 358. Patient was admitted with chest pain, the right posterior chest area. The patient likely had pulmonary infarction, complicated his bilateral pulmonary emboli. Clinically, he is doing well. He is on room air. No fluids. His heparin has been converted over to a direct oral anticoagulant (DOAC). The patient has no specific complaints today. He denies any shortness of breath. Laboratory data includes a white count of 6.9, hemoglobin 14.1, hematocrit 40.3, and a normal platelet count. No additional labs are noted. Objective - Vital Signs Vital signs: Vital Signs Temp 98 F 10/27/24 03:44 Pulse 64 10/27/24 04:41 Resp 15 10/27/24 04:41 BP 95/62 10/27/24 04:41 Pulse Ox 96 10/27/24 04:41 FiO2 Intake & Output 10/26/24 10/27/24 10/27/24 18:59 06:59 18:59 Intake Total 540 20 Balance 540 20 Weight 88 kg Intake: IV 20 0.9 20 Oral 540 Other: # Voids 1 - Exam No acute distress, oriented 3. The patient is currently on room air. HEENT examination is grossly unremarkable. Mucous membranes are moist. No oral lesions. Neck supple. Full range of motion. No adenopathy thyromegaly or neck vein distention. Cardiovascular examination reveals regular rhythm rate. S1-S2 normal. No S3 or S4. No discernible murmur noted. Lungs reveal clear breath sounds. Breath sounds are equal bilaterally. No adventitious lung sounds including wheezes rhonchi or crackles. Abdomen soft bowel sounds are heard. No masses or tenderness. Extremities are intact. No cyanosis clubbing or edema. Skin is without rash or lesion. Neurologic examination is brief but nonfocal. - Labs CBC & Chem 7: 10/27/24 07:18 10/26/24 02:27 Labs: Abnormal Lab Results - Last 24 Hours (Table) 10/26/24 10/27/24 Range/Units 10:32 07:18 MPV 9.0 L (9.5-12.2) fL APTT 56.8 H (22.0-30.0) sec Assessment and Plan Assessment: Acute bilateral pulmonary embolism, with right lower lobe pulmonary infarction. History of hepatitis C. History of bipolar disorder. History of ongoing tobacco use. Plan: Plan dated October 26, 2024. The patient is seen today in room 358. He is resting comfortably in bed. He is on room air. He presented to the emergency department, with complaints of headache, and pain in his right chest area. His D-dimer was elevated. His chest x-ray suggested a posterior infiltrate. CTA, was positive for bilateral pulmonary embolism, right greater than left. In addition, there appears to be an area of infarction, in the right lower lobe. This likely explains his chest pain. He is currently on IV heparin. He is resting comfortably. He can be transition to a factor Xa inhibitor. This was a unprovoked PE, and the patient should be treated for at least 6 months. Labs, x-rays, and medications are reviewed. Dictation was produced using [employer] software. Please excuse any grammatical, word or spelling errors. Plan dated October 27, 2024. The patient was seen in consultation yesterday. His heparin has been discontinued in favor of Eliquis. Doppler studies of the lower extremities were negative for DVT. The patient is currently on room air. Labs, x-rays, and medications are reviewed. The patient had a unprovoked pulmonary embolism in my opinion. The patient should be treated for 6 months. Additional recommendations and suggestions are forthcoming. From our perspective, the patient could be discharged. He will need a follow-up CT scan, in 8 to 10 weeks. Dictation was produced using [employer] software. Please excuse any grammatical, word or spelling errors. Time with Patient: Less than 30
--- NOTE | 2024-10-27 09:56 | P.DS ---
Providers Date of admission: 10/26/24 04:05 Expected date of discharge: 10/27/24 Attending physician: Forrest Mueller MD Consults: 10/26/24 04:05 Consult Physician Routine Consulting Provider: Christian Gamboa Reason/Comments: Acute pulmonary embolism Do you want consulting provider notified?: Yes Primary care physician: Stated None Hospital Course: 39-year-old male with history of bipolar disorder who states that he was doing well until the day of admission. The patient states he awoke from sleep with right-sided pain. The patient denied fevers or chills. The patient presented to the emergency room he was noted to be tachycardic with a heart rate of 112. The patient had a temperature of 98.1, respiratory rate of 18, blood pressure 123/82. The patient was noted to have a leukocytosis of 13.29, D-dimer 3.02. The patient had a CT of the chest that showed pulmonary emboli in the segmental and subsegmental pulmonary arteries to the right upper lobe. There were consolidation and groundglass opacities in the posterior right lower lobe. The patient was started on heparin drip and hospitalized for further workup and management. Upon admission he was evaluated by pulmonary service. Did not require oxygen or became hypoxic throughout the hospitalization. Only continued to have some pleuritic chest pain in the right lower chest area. He was conve rted from heparin drip to apixaban. Currently doing well. He will be discharged home in stable condition. He was instructed to follow-up with hematology as well as his primary care physician as an outpatient. Time for discharge 35 minutes Plan - Discharge Summary Discharge Rx Participant: No New Discharge Prescriptions: New Apixaban [Eliquis Starter Pack (for VTE)] 5 - 10 mg PO DIRECTED 30 Days #1 each Continue cloNIDine HCL [Catapres] 0.1 mg PO BID buPROPion HCL [buPROPion HCL XL] 150 mg PO DAILY OLANZapine 20 mg PO HS Discharge Medication List OLANZapine 20 mg PO HS 10/26/24 [History] buPROPion HCL [buPROPion HCL XL] 150 mg PO DAILY 10/26/24 [History] cloNIDine HCL [Catapres] 0.1 mg PO BID 10/26/24 [History] Apixaban [Eliquis Starter Pack (for VTE)] 5 - 10 mg PO DIRECTED 30 Days #1 each 10/27/24 [Rx] Follow up Appointment(s)/Referral(s): None,Stated [Primary Care Provider] - 1 Week
[2024-10-27 10:10] VITALS: BP 108/68; PULSE 68; RESP 16; TEMP 97.7
== END 2024-10-27 13:45 | disposition home or self-care (01) | DRG 176 ==
LOC: EC 01:18 → 3SCARD 04:05
PROVIDERS: ADMIT Internal Medicine; ATTEND Internal Medicine
DX: I26.99 Other pulmonary embolism without acute cor pulmonale (principal); D72.829 Elevated white blood cell count, unspecified; F31.9 Bipolar disorder, unspecified; F17.200 Nicotine dependence, unspecified, uncomplicated; R00.0 Tachycardia, unspecified; Z79.899 Other long term (current) drug therapy; Z86.19 Personal history of other infectious and parasitic diseases
CPT/HCPCS: 36415; 71046; 71275; 80053; 83880; 84484; 85025; 85379; 85730; 93005; 93970; 96361; 96365; 96375; 99291

== ENCOUNTER → 2024-12-05 | Outpatient (CLI) | payer MEDICARE, OTHER ==
[2024-12-05 22:30] LABS: Hepatitis C IgG Antibody Reactive (Nonreactive)
[2024-12-05 22:32] LABS: Hepatitis A Antibody IgM Nonreactive (Nonreactive); Hepatitis B Core IgM Nonreactive (Nonreactive); Hepatitis B Surface Antigen Nonreactive (Nonreactive)
== END | disposition home or self-care (01) ==
LOC: LABWHC1 13:46
PROVIDERS: ATTEND Nurse Practitioner Family
DX: Z20.828 Contact with and (suspected) exposure to other viral communicable diseases (principal); Z20.2 Contact with and (suspected) exposure to infections with a predominantly sexual mode of transmission
CPT/HCPCS: 36415; 80074; 86706; 86803; 87529